=== PATIENT | female | born 1980 | race Asian ===

== ENCOUNTER 2017-11-16 14:44 | Outpatient (CLI) | payer BC ==
--- NOTE | 2017-11-16 17:12 | MRI ---
MRI OF LUMBAR SPINE 11/16/17 HISTORY: R20.2, paresthesia of skin. M79.69, pain in limb. COMPARISON: None. FINDINGS: The background marrow signal is normal. No aneurysmal dilatation of the aorta. The visualized portion s of the kidneys are unremarkable. No retroperitoneal adenopathy. The paraspinal musculature is april l. The conus medullaris terminates at the mid L1 vertebral body. Levels are as follows: L1-L2: Mild degenerative disc space height loss. No significant neural foraminal or spinal canal narr owing. L2-3: There is a circumferential disc bulge. There is no significant neural foraminal narrowing. The spinal canal is narrowed to approximately 8 mm. L3-4: Normal disc. No neural foraminal spinal canal narrowing. L4-5: Low grade circumferential disc bulge. Mild facet arthrosis. There is mild bilateral neural fora abdulaziz narrowing. L5-S1: Disc is normal. No significant neural foraminal or spinal canal narrowing. IMPRESSION: Mild to moderate spondylosis at L2-3 and L4-5. POS: JOVAN
== END 2017-11-16 14:45 | disposition home or self-care (01) ==
LOC: SCSMRI 14:44
PROVIDERS: ATTEND Family Medicine
DX: M54.41 Lumbago with sciatica, right side (principal); M79.609 Pain in unspecified limb; R20.2 Paresthesia of skin; M47.816 Spondylosis without myelopathy or radiculopathy, lumbar region
CPT/HCPCS: 72148

== ENCOUNTER 2024-12-25 09:38 | Outpatient (CLI) | payer BC ==
[2024-12-25 11:27] LABS: #Basophils 0.04 10x3/uL (0.0-0.2); %Basophils 0.7 % (0.0-1.0); %Eosinophils 2.3 % (0.0-10.0); %Lymphocytes 45.1 % (21.0-51.0); %Neutrophils 45.7 % (42.0-75.0); Hematocrit 41.5 % (36.0-47.0); Hemoglobin 13.2 g/dL (12.0-16.0); Mean Corpuscular HGB CONC 31.8 g/dL (32.0-36.0); Mean Corpuscular Hemoglobin 29.3 pg (27.0-31.0); Mean Platelet Volume 9.5 fL (7.4-10.4); Platelet Count 307 10x3/uL (130-400); RBC Distribution Width 13.4 % (11.5-14.5); Red Blood Cell (RBC) Count 4.51 mill/uL (4.20-5.40)
[2024-12-25 11:39] LABS: BHCG - Serum Negative (NEGATIVE); Pregs Control Background? CLEAR/WHITE (CLR/WHITE); Pregs Control Bar Appear? YES (CONTROL BAR)
[2024-12-25 11:45] LABS: Anion Gap 12 mmol/L (10-20); BUN (Urea Nitrogen) 9 mg/dL (7.0-18.7); Calc. Creatinine Clearance 0 mL/min (70-130); Calcium 9.1 mg/dL (7.8-10.44); Carbon Dioxide 23 mmol/L (22-29); Chloride 108 mmol/L (98-107); Estimated GFR 111; Glucose 86 mg/dL (70-105); Potassium 4.2 mmol/L (3.5-5.1); Sodium 139 mmol/L (136-145)
[2024-12-25 12:11] LABS: Bacteria/HPF 2+ HPF (None Seen); Bilirubin Negative (Negative); Blood, Urine Trace (Negative); Clarity Clear (Clear); Glucose, Urine (Dipstick) Normal (Negative); Ketone, Urine Negative (Negative); Leukocyte Negative Leu/uL (Negative); Nitrite Negative (Negative); Protein, Urine (Dipstick) Negative (Neg-Trace); Specific Gravity, Urine 1.017 (1.002-1.036); Urobilinogen Normal mg/dL (Less than 2); WBC/HPF 0-3 HPF (0-3)
== END 2024-12-25 09:39 | disposition home or self-care (01) ==
LOC: LABBT 09:38
PROVIDERS: ATTEND Urology
DX: Z01.818 Encounter for other preprocedural examination (principal); N20.0 Calculus of kidney
CPT/HCPCS: 71046; 80048; 81001; 84703; 85025; 87086; 93005; 93010